=== PATIENT | female | born 1970 | race Caucasian/White ===

== ENCOUNTER 2017-09-11 18:10 | Emergency (ER) | payer OTHER ==
[~2017-09-11] VITALS: Ht 165.1 cm; Wt 56.7 kg
[2017-09-11] MEDS ORDERED: Isovue-300 100ml vial INJ PRN (18:15)
[2017-09-11] MEDS ORDERED: Haloperidol 5mg/ml Inj IM ONE (18:15)
[2017-09-11] MEDS ORDERED: ACYCLOVIR800 MG ORAL (18:16)
[2017-09-11] MEDS ORDERED: METRONIDAZOLE45 G1 TOPIC (18:16)
[2017-09-11] MEDS ORDERED: ASPIR 8181 MG ORAL (18:16)
[2017-09-11] MEDS ORDERED: NAPROXEN25 G1 MC (18:16)
--- NOTE | 2017-09-11 18:45 | Emergency Room Report ---
History of Present Illness General Chief Complaint: Abdominal Pain Source: Patient Present Illness HPI 39-year-old female presents with left lower quadrant pain, constant, sharp, nonradiating, moderate to severe, no obvious alleviators exacerbating factors for the last couple days with multiple bouts of nausea and vomiting nonbloody non-blepharal material. She reports she gets this every couple months he's never been on Hospital for reports she has a history of a morphine allergy but requests Dilaudid. She reports normal bowel movements, no fevers, no other complaints. Allergies: Coded Allergies: MORPHINE (Verified Allergy, Unknown, 09/11/17) PENICILLINS (Verified Allergy, Unknown, 09/11/17) Patient History Past Medical History: see triage record Reviewed Nursing Documentation: PMH: Agreed; PSxH: Agreed Review of Systems All Other Systems: negative except mentioned in HPI Physical Exam Vital Signs Date Time Temp Pulse Resp B/P (MAP) Pulse Ox O2 Delivery O2 Flow Rate FiO2 09/11/17 18:09 98.1 72 18 119/73 99 Room Air 98.1 Sp02 EP Interpretation: reviewed, normal General Appearance: no apparent distress, alert, non-toxic Head: normocephalic Eyes: bilateral eye normal inspection, bilateral eye PERRL, bilateral eye EOMI ENT: normal ENT inspection, hearing grossly normal, normal pharynx, no angioedema, normal voice, moist mucus membranes Neck: normal inspection, full range of motion, supple, supple/symm/no masses Respiratory: chest non-tender, lungs clear, normal breath sounds, chest symmetrical, palpation of chest normal Cardiovascular #1: normal peripheral pulses, regular rate, rhythm Cardiovascular #2: 2+ radial (R), 2+ radial (L) Gastrointestinal: normal inspection, soft, no mass, no guarding, no rebound, tenderness - Focal left lower quadrant tenderness. No guarding or rebound Rectal: deferred Genitourinary: normal inspection, no CVA tenderness Musculoskeletal: back normal, gait/station normal, normal range of motion, non- tender, no calf tenderness Neurologic: alert, responsive, [employer] III-XII nml as tested, motor strength/tone normal, sensory intact, speech normal Psychiatric: judgement/insight normal, memory normal, mood/affect normal, no suicidal/homicidal ideation Skin: normal color, no rash, warm/dry, normal turgor Lymphatic: no adenopathy Medical Decision Making Diagnostic Impression: Primary Impression: Abdominal pain Additional Impression: Diverticulitis ER Course Patient with focal tenderness left lower quadrant, pontine diverticulitis without evidence of perforation or abscess on CT scan. An IV Cipro, IV Flagyl, admitted Rhythm Strip Diag. Results Rhythm Strip Time: 18:45 EP Interpretation: yes Rate: 77 Rhythm: NSR, no PVC's, no ectopy Reevaluation Time: 20:09 Last Vital Signs Date Time Temp Pulse Resp B/P (MAP) Pulse Ox O2 Delivery O2 Flow Rate FiO2 09/11/17 18:09 98.1 72 18 119/73 99 Room Air 98.1 Status: unchanged Disposition: ADMITTED INPATIENT Condition: Stable VIOLET MA M.D Sep 11, 2017 18:45
[2017-09-11 18:48] VITALS: BP 137/82
[2017-09-11 18:59] LABS: ANION GAP 12 mmol/L (5-15); BLOOD UREA NITROGEN 13 mg/dL (7-18); CALCIUM 9.3 MG/DL (8.5-10.1); CARBON DIOXIDE 24 MMOL/L (21-32); CHLORIDE 103 MMOL/L (98-107); CREATININE 0.8 MG/DL (0.55-1.30); POTASSIUM 4.1 MMOL/L (3.5-5.1); SODIUM 139 MMOL/L (136-145)
[2017-09-11 19:03] LABS: ALANINE AMINOTRANSFERASE 19 U/L (12-78); ALBUMIN 3.8 G/DL (3.4-5.0); ALKALINE PHOSPHATASE 54 U/L (46-116); ASPARTATE AMINO TRANSFERASE 12 U/L (15-37); BILIRUBIN,TOTAL 0.2 MG/DL (0.2-1.0)
[2017-09-11 19:12] LABS: APPEARANCE,URINE CLEAR; BILIRUBIN, URINE NEGATIVE (NEGATIVE); COLOR,URINE PALE YELLOW; GLUCOSE, URINE (UA) NEGATIVE (NEGATIVE); KETONES,URINE NEGATIVE (NEGATIVE); LEUKOCYTE ESTERASE ,URINE 1+ (NEGATIVE); NITRITE,URINE NEGATIVE (NEGATIVE); PH,URINE 5 (4.5-8.0); PROTEIN,URINE NEGATIVE (NEGATIVE); UROBILINOGEN,URINE NORMAL MG/DL (0.0-1.0)
[2017-09-11 19:13] LABS: BASOPHILS % (AUTO) 0.8 % (0.0-2.0); EOSINOPHILS % (AUTO) 0.5 % (0.0-3.0); HEMATOCRIT 43.5 % (37.0-47.0); HEMOGLOBIN 14.5 G/DL (12.0-16.0); MEAN CORPUSCULAR VOLUME 91 FL (80-99); MONOCYTES % (AUTO) 5.5 % (1.0-10.0); NEUTROPHILS % (AUTO) 80.3 % (45.0-75.0); PLATELET COUNT 383 K/UL (150-450); RED CELL DISTRIBUTION WIDTH 11.8 % (11.6-14.8); WHITE BLOOD COUNT 16.7 K/UL (4.8-10.8)
[2017-09-11] MEDS ORDERED: fentaNYL 100 mcg/2 mL IV ONE ×2 (20:15)
[2017-09-11] MEDS ORDERED: CIPROFLOXACIN500 M2 ORAL (21:09)
[2017-09-11] MEDS ORDERED: NORCO 5-325 TA1 EACH ORAL (21:09)
[2017-09-11] MEDS ORDERED: METRONIDAZOLE500 MG ORAL (21:09)
[2017-09-11 21:55] VITALS: BP 101/72
[2017-09-11 22:06] VITALS: BP 101/72
--- NOTE | 2017-09-12 09:09 | Diagnostic Imaging Report ---
Clinical Indication: Abdominal pain, nausea, vomiting, history of diverticulitis Technique: No oral contrast utilized, per emergency room physician request IV administration nonionic contrast. Venous phase spiral acquisition obtained through the abdomen and pelvis. Multiplanar reconstructions were generated. Total dose length product 540 mGycm. CTDIvol(s) 10.08 mGy. Dose reduction achieved using automated exposure control Comparison: none Findings: There is colonic diverticulosis. There is wall thickening of the sigmoid:, But only minimal infiltration of the pericolonic fat. There is a small amount of free fluid within the pelvis.. No evidence of contained fluid collection or extraluminal gas The appendix is normal. No small bowel distention. No no intraperitoneal air demonstrated The distal esophagus, stomach, duodenum are unremarkable. The liver demonstrates a low-attenuation lesion with peripheral nodular enhancement at the tip of the left hepatic lobe, segment 2, measuring 2.4 cm in diameter. More ill-defined but possibly similar 10 mm lesion is seen within segment 5. The gallbladder is nondistended. No biliary ductal dilatation. The pancreas, spleen, adrenals, kidneys are all unremarkable. No pelvic mass or adenopathy. There is a collapsed follicle in the left ovary. The included lung bases demonstrate atelectasis or scarring in the medial right middle lobe and medial lingula. The bones demonstrate mild degenerative proliferative spondylosis. Impression: Diverticulosis Wall thickening of the sigmoid colon, with minimal pericolonic inflammatory change. Findings likely represent acute diverticulitis given the presence of diverticula and stated clinical history. However, focal colitis and, less likely, neoplasm are also possibilities. Free pelvic fluid, could be physiologic or could be related to the above Left and right lobe liver lesions, as described. Likely but not definitively benign hemangiomas. Consider further workup with hemangioma protocol MRI Collapsed left ovarian follicle/corpus luteum Incidental finding of mild degenerative spondylosis, bilateral basilar pulmonary parenchymal atelectasis or scarring This agrees with the preliminary interpretation provided overnight by [facility]. The CT scanner at [facility] is accredited by the [employer] and the scans are performed using protocols designed to limit radiation exposure to as low as reasonably achievable to attain images of sufficient resolution adequate for diagnostic evaluation.
== END 2017-09-11 22:06 | disposition home or self-care (01) ==
LOC: EDBD 18:10 → EMR 18:46 → CANBEDREQ 20:44 → EMR 22:06
DX: K57.32 Diverticulitis of large intestine without perforation or abscess without bleeding (principal); Z88.0 Allergy status to penicillin; Z88.5 Allergy status to narcotic agent
CPT/HCPCS: 36415; 74177; 80053; 81003; 83690; 85025; 96365; 96368; 96372; 96375; 99285; J0744; J1630; J2405; J3010; Q9967; S0028; 96360; 96374